=== PATIENT | male | born 1945 | race Caucasian/White ===

== ENCOUNTER → 2019-01-16 | Outpatient (CLI) | payer MEDICARE, OTHER ==
[2019-01-16 14:53] LABS: BLOOD UREA NITROGEN 18 mg/dl (7-20)
[2019-01-16 14:53] LABS: CREATININE 0.94 mg/dl (0.61-1.24)
[2019-01-16] MEDS: IOHEXOL 100 ML (15:25)
[2019-01-16] MEDS: SOD CHLORIDE 0.9% 100 ML (15:25)
== END | disposition home or self-care (01) ==
LOC: C/S 12:49
DX: R06.02 Shortness of breath (principal)
CPT/HCPCS: 71275; 82565; 84520